=== PATIENT | female | born 2005 | race Caucasian/White ===

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

== ENCOUNTER 2023-10-09 18:03 | Emergency (ER) | payer SELFPAY ==
[~2023-10-09] VITALS: Ht 170.1 cm; Wt 130.6 kg
[~2023-10-09 18:03] MED LIST changes: +ZOFRAN4 MG PO
[2023-10-09 18:13] VITALS: BP 129/86
== END 2023-10-09 19:41 | disposition home or self-care (01) ==
LOC: ED 18:03
DX: B34.9 Viral infection, unspecified (principal); Z86.16 Personal history of COVID-19; Z20.822 Contact with and (suspected) exposure to COVID-19

== ENCOUNTER 2023-12-01 15:48 | Emergency (ER) | payer SELFPAY ==
[~2023-12-01] VITALS: Ht 167.6 cm; Wt 104.3 kg
[2023-12-01 16:09] VITALS: BP 108/63
== END 2023-12-01 19:48 | disposition home or self-care (01) ==
LOC: ED 15:48
DX: S89.92XA Unspecified injury of left lower leg, initial encounter (principal); Z86.16 Personal history of COVID-19; Z98.890 Other specified postprocedural states; W17.89XA Other fall from one level to another, initial encounter; Y93.51 Activity, roller skating (inline) and skateboarding; Y92.89 Other specified places as the place of occurrence of the external cause; Y99.8 Other external cause status

== ENCOUNTER 2025-01-13 18:58 | Emergency (ER) | payer SELFPAY ==
[~2025-01-13] VITALS: Ht 167.6 cm; Wt 131.5 kg
[2025-01-13 19:13] VITALS: BP 118/66
[2025-01-13] MEDS ORDERED: hydrOXYzine pamoate 25 MG CAP PO ONE (19:25)
[2025-01-13] MEDS ORDERED: VISTARIL25 MG PO (19:44)
== END 2025-01-13 20:00 | disposition home or self-care (01) ==
LOC: ED 18:58
DX: F41.9 Anxiety disorder, unspecified (principal); R20.0 Anesthesia of skin; R00.2 Palpitations; R42 Dizziness and giddiness

== ENCOUNTER 2025-04-24 23:19 | Emergency (ER) | payer SELFPAY ==
[~2025-04-24] VITALS: Ht 172.7 cm; Wt 131.5 kg
[~2025-04-24 23:19] MED LIST changes: +VISTARIL25 MG PO
[2025-04-24 23:33] VITALS: BP 141/88
[2025-04-24] MEDS ORDERED: methylPREDNISolone sod succ 125 MG VIAL IM ONE (23:40)
[2025-04-24] MEDS ORDERED: PREDNISONE20 M1 PO (23:47)
== END 2025-04-24 23:55 | disposition home or self-care (01) ==
LOC: ED 23:19
DX: L23.7 Allergic contact dermatitis due to plants, except food (principal); F41.9 Anxiety disorder, unspecified; Z79.899 Other long term (current) drug therapy

== ENCOUNTER 2025-06-19 00:11 | Emergency (ER) | payer OTHER ==
[~2025-06-19] VITALS: Ht 162.5 cm; Wt 128.8 kg
[2025-06-19 00:26] VITALS: BP 145/88
[2025-06-19] MEDS ORDERED: Bacitracin Zinc 14 GM TUBE T ONE (01:10)
[2025-06-19] MEDS ORDERED: NAPROSYN500 MG PO (01:11)
== END 2025-06-19 01:29 | disposition home or self-care (01) ==
LOC: ED 00:11
DX: S50.11XA Contusion of right forearm, initial encounter (principal); Z79.899 Other long term (current) drug therapy; W19.XXXA Unspecified fall, initial encounter; Y93.89 Activity, other specified; Y92.89 Other specified places as the place of occurrence of the external cause; Y99.8 Other external cause status